=== PATIENT | female | born 1975 | race African-American/Black ===

== ENCOUNTER 2022-12-23 09:43 | Emergency (ER) | payer BC ==
[~2022-12-23] VITALS: Ht 165.1 cm; Wt 74.0 kg
[2022-12-23 09:56] VITALS: BP 135/83; PULSE 64; RESP 20; TEMP 98.3; O2SAT 96
[2022-12-23 10:29] LABS: CLARITY URINE CLEAR (CLEAR); COLOR URINE YELLOW (YELLOW); KETONES URINE TRACE (NEGATIVE); LEUKOCYTE ESTERASE URINE NEGATIVE (NEGATIVE); NITRITE URINE NEGATIVE (NEGATIVE); OCCULT BLOOD URINE 2+ (NEGATIVE); PH URINE 5.5 (4.5-8.0); PROTEIN URINE TRACE (NEGATIVE); SPECIFIC GRAVITY URINE 1.026 (1.005-1.030)
[2022-12-23 11:23] LABS: BASOPHILS % 0.9 % (0.0-2.0); HEMATOCRIT. 35.1 % (36.0-48.0); LYMPHOCYTES % 47.8 % (20.0-50.0); MEAN CORPUSCULAR HEMOGLOBIN 30.4 pg (28.0-32.0); MEAN CORPUSCULAR VOLUME 88.9 fL (81.0-99.0); MEAN PLATELET VOLUME 7.5 fl (7.4-10.4); MONOCYTES % 7.1 % (2.0-8.0); NEUTROPHILS % 42.2 % (40.0-76.0); PLATELET 320 x1000/uL (130-400); RED BLOOD CELL COUNT 3.95 mill/uL (4.2-5.4); RED CELL DISTRIBUTION WIDTH 14.9 % (11.6-14.6)
[2022-12-23 11:38] LABS: CHLORIDE 109 mEq/L (98-107)
[2022-12-23 11:39] LABS: HCG SCREEN NEGATIVE
[2022-12-23] MEDS ORDERED: IBUP-2029 MT ×2 (13:03)
[2022-12-23] MEDS ORDERED: KETOROLAC 30MG/ML VIAL IM ONE (13:15)
[2022-12-23] MEDS ORDERED: HYDROCODONE/ACETAMINOPHEN 5/325MG TABLET PO ONE (14:00)
== END 2022-12-23 14:47 | disposition home or self-care (01) ==
LOC: ER 09:43
DX: R10.9 Unspecified abdominal pain (principal); I10 Essential (primary) hypertension; Z98.890 Other specified postprocedural states
CPT/HCPCS: 99285; 74176; 80053; 81003; 81025; 84703; 85025; 36415; 96372; J1885

== ENCOUNTER 2024-06-02 07:58 | Emergency (ER) | payer BC, MEDICAID ==
[~2024-06-02] VITALS: Ht 165.1 cm; Wt 73.5 kg
[2024-06-02 08:00] VITALS: O2SAT 100
[2024-06-02 09:23] LABS: CHLORIDE 105 mEq/L (98-107); POTASSIUM 3.4 mEq/L (3.5-5.1); SODIUM 136 mEq/L (136-145)
[2024-06-02 09:24] LABS: CALCIUM 8.9 mg/dL (8.7-10.4); CARBON DIOXIDE 23 mEq/L (21-32); HCG SCREEN NEGATIVE
[2024-06-02 09:29] LABS: BASOPHILS % 0.6 % (0.0-2.0); CREATININE 1.3 mg/dL (0.6-1.0); EOSINOPHILS % 0.1 % (0.0-5.0); GLUCOSE 112 mg/dL (70-105); HEMOGLOBIN. 12.8 g/dL (12.0-16.0); LYMPHOCYTES % 10.5 % (20.0-50.0); MEAN CORPUSCULAR HEMOGLOBIN 29.4 pg (28.0-32.0); MEAN CORPUSCULAR HGB CONC 32.9 g/dL (31.0-37.0); MEAN CORPUSCULAR VOLUME 89.6 fL (81.0-99.0); MEAN PLATELET VOLUME 7.9 fl (7.4-10.4); NEUTROPHILS % 81.8 % (40.0-76.0); PLATELET 282 x1000/uL (130-400); RED BLOOD CELL COUNT 4.35 mill/uL (4.2-5.4); WHITE BLOOD COUNT 11.7 x1000/uL (4.5-11.0)
[2024-06-02 09:30] LABS: UREA NITROGEN BLOOD 7 mg/dL (9-23)
[2024-06-02 09:31] LABS: ALANINE AMINOTRANSFERASE 23 IU/L (10-49); ALBUMIN 4.4 g/dL (3.2-4.8); ASPARTATE AMINOTRANSFERASE 32 IU/L (<34)
[2024-06-02 09:32] LABS: BILIRUBIN TOTAL 0.3 mg/dL (0.1-1.0); PROTEIN TOTAL 7.1 g/dL (6.0-8.3)
[2024-06-02 10:07] LABS: BILIRUBIN DIRECT < 0.1 mg/dL (<=3.0)
[2024-06-02 10:38] VITALS: BP 125/82
[2024-06-02] MEDS: ONDANSETRON 4MG ODT PO ONE (10:38)
[2024-06-02] MEDS: IBUPROFEN 600MG TABLET PO ONE (10:38)
[2024-06-02] MEDS: ACETAMINOPHEN 325MG TABLET PO ONE (10:38)
[2024-06-02 11:44] VITALS: TEMP 37.94748; O2SAT 100
[2024-06-02 12:00] LABS: CLARITY URINE CLEAR (CLEAR); COLOR URINE DARK YELLOW (YELLOW); GLUCOSE URINE NEGATIVE (NEGATIVE); KETONES URINE 1+ (NEGATIVE); LEUKOCYTE ESTERASE URINE NEGATIVE (NEGATIVE); NITRITE URINE NEGATIVE (NEGATIVE); OCCULT BLOOD URINE NEGATIVE (NEGATIVE); PROTEIN URINE 2+ (NEGATIVE); SPECIFIC GRAVITY URINE 1.027 (1.005-1.030)
[2024-06-02 12:03] VITALS: PULSE 88; RESP 18
[2024-06-02] MEDS ORDERED: ONDA-239 PO (12:11)
[2024-06-02 12:22] LABS: BACTERIA URINE 1+; SQUAMOUS EPITHELIAL CELL URINE 2+ /lpf (RARE/1+); WBC URINE 0-2 /hpf (0-2); YEAST URINE NONE SEEN
== END 2024-06-02 15:22 | disposition home or self-care (01) ==
LOC: ER 07:58
DX: B34.9 Viral infection, unspecified (principal); I10 Essential (primary) hypertension; Z20.822 Contact with and (suspected) exposure to COVID-19
CPT/HCPCS: 99285; 71045; 87426; 80076; 80048; 81003; 84703; 83690; 85025; 87804 ×2; 36415; 93005; Q0162